=== PATIENT | male | born 1965 | race Caucasian/White ===

== ENCOUNTER 2022-07-26 05:22 | Day surgery (SDC) | payer MEDICARE, OTHER ==
[2022-07-26] MEDS ORDERED: CEFAZOLIN 2 GM-D5W BAG** 2 GM/50 ML ML IV SCH (06:00)
[2022-07-26] MEDS ORDERED: XYLOCAINE 1% HCL 20 ML MDV ONE (06:26)
[2022-07-26] MEDS ORDERED: Marcaine Mpf 0.5% Vial 30 Ml ONE (06:26)
[2022-07-26] MEDS ORDERED: Sodium Chloride 0.9% 1000 ML 1,000 ML ONE (07:01)
[2022-07-26 08:35] VITALS: BP 100/64; PULSE 84; O2SAT 96
--- NOTE | 2022-07-26 10:03 | OP ---
SURGERY DATE/TIME: 07/26/2022 0712 PREOPERATIVE DIAGNOSES: 1) Chronic diabetic foot ulcer right foot. 2) Severe peripheral neuropathy. 3) Osteomyelitis. 4) Acute infection. 5) Gastrocnemius equinus. POSTOPERATIVE DIAGNOSES: 1) Chronic diabetic foot ulcer right foot. 2) Severe peripheral neuropathy. 3) Osteomyelitis. 4) Acute infection. 5) Gastrocnemius equinus. PROCEDURES: 1) Incision and drainage to right foot to level of bone. 2) Partial resection of first metatarsal head. SURGEON: Eliseo Bradshaw DPM. NUCLEAR POWERPLANT MECHANIC HELPER: None. ANESTHESIA: Local consisting of 30 cc of a 1:1 mixture of 1% lidocaine plain and 0.5% bupivacaine plain injected in a Rao block-type fashion. HEMOSTASIS: Pressure dressing. ESTIMATED BLOOD LOSS: Less than 20 cc. MATERIALS: 3-0 Nylon, 1 inch Iodoform packing. INJECTABLES: 30 cc of a 1:1 mixture of 1% lidocaine plain and 0.5% bupivacaine plain. INDICATION FOR SURGERY: Lalo is a very pleasant 56-year-old patient well known to my service for an ulceration to the plantar aspect of his right foot. At this time, the patient has had a long standing ulceration first metatarsal head that has waxed and waned in its ability to heal. At this time the patient has had acute infection and significant pain at the ulceration at the plantar aspect of the right foot. Previous visit his ulceration did probe to bone and decision was made to proceed with surgical intervention to once and for all deal with this issue. The patient understands that this is going to be a staged procedure at this time. The goal of this procedure is to offload the first metatarsal head ulceration so that he is capable of healing this will change his biomechanics and he understands that. For that, I do recommend that he would go to a flight attendant/inflight supervisor/structural iron erector in order to help his postoperative ambulation. The patient has not had multiple amputations at this time and no guarantees were provided as to this being the final definitive procedure. The patient understands this and wishes to proceed. He understands all risks, complications and benefits of surgical intervention including but not limited to infection, hematoma, seroma, possibility of delayed skin healing, nonskin healing, possibility of heterotopic ossification and possible need for surgical intervention at a later date. It is with that we decided proceed. DESCRIPTION OF PROCEDURE AND FINDINGS: The patient was brought into the OR and placed on the OR table in the supine position. At this time adequate local anesthesia was administered until the patient's foot was sedated. This consisted of 30 cc injection of a 1:1 mixture of 1% lidocaine plain and 0.5% bupivacaine plain injected in a Rao block-type fashion. The foot was prepped and draped in the typical sterile fashion and lowered onto the field. At this time attention was directed to the plantar ulceration where an ellipse incision was made in 3:1 at the plantar aspect of the foot. This ulceration was then excised and removed from the site and handed off of the field for pathologic assessment. At this time sagittal saw was utilized with a 30 mm blade to resect approximately 2.5 cm of bone including the metatarsal head and a portion of the metatarsal neck. At this time this was handed off the field for pathologic assessment. Soft tissue cultures were obtained. Copious amounts of sterile saline via pulse lavage were then utilized to flush the surgical site. Following this, gloves were changed. Two figure-of-8 stitches were affixed at the plantar aspect of the incision site and 1 inch Iodoform packing was placed over the remaining open site. The foot was cleansed with sterile saline and dried. A dressing consisting of Betadine, Adaptic, 4x4, Kerlix, ABD and CHAI was then applied to the right foot with the foot orthogonal relative to longitudinal aspect of the leg. The patient was then returned to the preoperative area with vital signs stable and vascular status intact. The patient handled the block as well as the procedure without significant complication. Postoperative orders as indicated in the patient's discharge chart.
--- NOTE | 2022-07-26 13:53 | XRAY ---
7 seconds fluoroscopy time in surgery for resection of the right 1st metatarsal.
--- NOTE | 2022-07-29 08:20 | XRAY ---
Indication: Right foot 1st metatarsal resection. Intraoperative fluoroscopy provided for 7 seconds. 3 digital spot images submitted for interpretation demonstrates partial amputation distal 1st metatarsal. Correlate with intraoperative findings/report.
== END 2022-07-26 08:40 | disposition home or self-care (01) ==
LOC: SDC 05:22
PROVIDERS: ATTEND Podiatrist Foot & Ankle Surgery
DX: E11.621 Type 2 diabetes mellitus with foot ulcer (principal); G62.9 Polyneuropathy, unspecified; M86.071 Acute hematogenous osteomyelitis, right ankle and foot; M21.6X1 Other acquired deformities of right foot
CPT/HCPCS: 28005; 28122; 73630; 76000; 82947; J0690

== ENCOUNTER 2022-07-30 08:37 | Day surgery (SDC) | payer MEDICARE, OTHER ==
[2022-07-30] MEDS ORDERED: CEFAZOLIN 2 GM-D5W BAG** 2 GM/50 ML ML IV SCH (09:00)
[2022-07-30] MEDS ORDERED: Lactated Ringers 1,000 ML IV SCH (09:00)
[2022-07-30] MEDS ORDERED: CEFAZOLIN 2 GM-D5W BAG** 2 GM/50 ML ML IV ONE (09:14)
[2022-07-30] MEDS ORDERED: Lactated Ringers 1,000 ML IV ONE (09:15)
[2022-07-30] MEDS ORDERED: Sensorcaine 0.25% 10 ML ONE (10:11)
[2022-07-30] MEDS ORDERED: XYLOCAINE 1% HCL 20 ML MDV ONE (10:11)
[2022-07-30 12:02] VITALS: BP 132/72; PULSE 78; O2SAT 97
[2022-07-30 12:22] LABS: ANION GAP 7.4 MEQ/L (5-15); BLOOD UREA NITROGEN 16 mg/dL (9-20); CHLORIDE 101 mmol/L (98-107); Calcium 8.6 mg/dL (8.4-10.2); Carbon Dioxide 31 mmol/L (22-30); EST GLOMERULAR FILTRATION RATE > 60.0 ML/MIN; Glucose 134 mg/dL (74-106); Potassium 3.9 mmol/L (3.5-5.1); SODIUM 135 mmol/L (137-145)
--- NOTE | 2022-07-30 14:15 | OP ---
SURGERY DATE/TIME: 07/30/2022 1046 PREOPERATIVE DIAGNOSES: 1) Diabetic foot ulcer chronic. 2) Osteomyelitis. 3) Pain right foot. 4) History of amputation. 5) Uncontrolled diabetes. 6) Peripheral neuropathy. 7) Peripheral vascular disease. POSTOPERATIVE DIAGNOSES: 1) Diabetic foot ulcer chronic. 2) Osteomyelitis. 3) Pain right foot. 4) History of amputation. 5) Uncontrolled diabetes. 6) Peripheral neuropathy. 7) Peripheral vascular disease. PROCEDURES: 1) Incision and drainage to level of bone repeat right foot. 2) Abductor hallucis muscle belly flap. 3) Complex closure right foot. SURGEON: Eliseo Bradshaw DPM. SENIOR STACK ENGINEER: None. ANESTHESIA: Local consisting of 20 cc of a 1:1 mixture of 1% lidocaine plain and 0.5% bupivacaine plain injected in a [place] block-type fashion. ESTIMATED BLOOD LOSS: Less than 10 cc. MATERIALS: 4-0 Monocryl, 2-0 Vicryl, 3-0 Nylon, 2-0 Nylon, suture guard. INJECTABLES: 20 cc of a 1:1 mixture of 1% lidocaine plain and 0.5% bupivacaine plain injected in [place] block-type fashion. INDICATION FOR SURGERY: Lalo is a very pleasant 56-year-old male known to my service very well for a diabetic foot ulcer underneath is first metatarsophalangeal joint of the right foot. The patient has had a history of long standing amputation to the bilateral lower extremity and is a severely vascular impaired patient with difficulty healing a wound. We have been seeing this patient for approximately a year at this point with attempts at minimally invasive technique addressing the issue. However, he had a recent infection that concerned the patient and we have decided to proceed with a partial amputation of the first metatarsal. The patient has been left open for approximately five days at this time and wishes to proceed with second stage of this procedure. He understands all risks, complications and benefits of surgical intervention at this time including but not limited to infection, hematoma, seroma, possibility of delayed wound healing, nonwound healing, possibility of heterotopic bone formation and need for further surgical intervention later on down the line. No guarantees were provided as to the outcome of surgical intervention. It is with that we decided to proceed. DESCRIPTION OF PROCEDURE AND FINDINGS: The patient was brought into the OR and placed on the OR table in the supine position. At this time the patient's right lower extremity was prepped and draped in the typical sterile fashion and lowered onto the surgical field. At this time 20 cc block consisting of a 1:1 mixture of 1% lidocaine plain and 0.5% bupivacaine plain was injected in a Rao block-type fashion to the right foot. At this time the foot was prepped and draped in typical sterile fashion and lowered onto the field. The incision was deepened at this time through the previous opening on the plantar aspect of the forefoot. Stitches were removed and the wound was explored. A healthy bleeding edge was identified on both edges utilizing a 15 blade making a full thickness incision. At this time the bone was debrided at the residual aspect of the wound. Following this, copious amounts of sterile saline were utilized to flush the surgical site. Prior to this, the abductor hallucis muscle belly origin took place at this time utilizing a 15 blade and pair of pickups being careful not to damage or dissect the muscle belly this was reflected and sutured to the periosteum of the dorsal first metatarsal overlying amputation site. Following this copious amounts of sterile saline were once again utilized to flush the surgical site. A suture guard was utilized to take the tension off of the wound edges. 4-0 Monocryl was utilized to coapt the subcutaneous edges of the wound and 3-0 Nylon was utilized in horizontal mattress-type fashion to lakshmi the skin edges at the incision site. Following this, a dressing consisting of Betadine, Adaptic, 4x4, Kerlix, ABD and CHAI were applied to the right foot with moderate compression. The patient was returned to the postoperative anesthesia care unit with vital signs stable and vascular status intact. The patient handled the anesthesia as well as the procedure without significant complication. Postoperative orders as indicated in the patient's discharge chart.
== END 2022-07-30 12:20 | disposition home or self-care (01) ==
LOC: SDC 08:37
PROVIDERS: ATTEND Podiatrist Foot & Ankle Surgery
DX: E11.621 Type 2 diabetes mellitus with foot ulcer (principal); M79.671 Pain in right foot; Z89.421 Acquired absence of other right toe(s); Z89.422 Acquired absence of other left toe(s); E11.65 Type 2 diabetes mellitus with hyperglycemia; G62.9 Polyneuropathy, unspecified; I73.9 Peripheral vascular disease, unspecified; M86.9 Osteomyelitis, unspecified
CPT/HCPCS: 13160; 15738; 28005; 36415; 80048; 82947; J0690